=== PATIENT | male | born 1960 | race Caucasian/White ===

== ENCOUNTER 2018-08-29 10:48 | Emergency (ER) | payer OTHER, MEDICAID ==
[~2018-08-29] VITALS: Ht 170.2 cm; Wt 77.1 kg
[2018-08-29 11:33] VITALS: Ht 170.2 cm; Wt 77.1 kg
[2018-08-29 13:41] VITALS: BP 110/80
== END 2018-08-29 13:41 | disposition home or self-care (01) ==
LOC: ED 10:48
DX: S00.83XA Contusion of other part of head, initial encounter (principal); S09.8XXA Other specified injuries of head, initial encounter; S69.91XA Unspecified injury of right wrist, hand and finger(s), initial encounter; V49.50XA Passenger injured in collision with unspecified motor vehicles in traffic accident, initial encounter; Y93.89 Activity, other specified; Y92.413 State road as the place of occurrence of the external cause; Y99.8 Other external cause status
CPT/HCPCS: Q0092